=== PATIENT | male | born 1970 | race Caucasian/White ===

== ENCOUNTER 2017-02-20 19:06 | Emergency (ER) | payer OTHER ==
[~2017-02-20] VITALS: Ht 198.1 cm; Wt 95.2 kg
--- NOTE | ~2017-02-20 | EKG ---
PATIENT: OSVALDO HERNÁNDEZ UNIT #: [id number] Ventricular Rate: 72 BPM Atrial Rate: 72 BPM P-R Interval: 146 ms QRS Duration: 102 ms Q-T Interval: 386 ms QTC Calculation(Bezet): 422 ms P [place]: 21 degrees Calculated R [place]: -33 degrees Calculated T [place]: -36 degrees Diagnosis Line: Normal sinus rhythm Diagnosis Line: Left axis deviation Diagnosis Line: Nonspecific T wave abnormality Diagnosis Line: Abnormal ECG Diagnosis Line: When compared with ECG of 05-MAY-2016 10:42, Diagnosis Line: Nonspecific T wave abnormality no longer evident Diagnosis Line: in Anterior leads Diagnosis Line: Confirmed by DEMARCUS DE LA CRUZ MD ([id number]) on 02/22/2017 Diagnosis Line: 2:56:35 PM INTERPRETING MD: JONO GAITAN
--- NOTE | ~2017-02-20 | CR72 ---
[facility] A Service of [facility] & [facility] RADIOLOGY TEXT RESULTS PATIENT: OSVALDO HERNÁNDEZ LOCATION: [facility] : 72 UNIT #: [id number] AGE: [address]: Kaz Dumont MD SEX: M ORDER DR: [id number] [facility] [address] [place], [place] [address] [id number] MR#: [id number] Acc #: [id number] NAME: OSVALDO HERNÁNDEZ : 1970 SEX: M STUDY DATE/TIME: 02/20/2017 21:07 UNIT: [facility] ROOM: STUDY DESCRIPTION: CR Chest Single View Portable Attending Physician: Kaz Dumont M.D. Ordering Physician: [facility] Primary Care Physician: Tobin Mosqueda M.D. MEDICAL IMAGING REPORT This report is preliminary unless electronic signature is present EXAM Single view chest INDICATIONS Chest pain. Right-sided chest pain for 1 day. Positive smoking history. TECHNIQUE Single portable AP view of the chest compared to 05/05/2016. FINDINGS Heart and mediastinal contours are normal. Lungs are clear. No pleural effusion. IMPRESSION No acute cardiopulmonary findings. Dictated by... Elias Fu M.D. THIS IS AN ELECTRONICALLY VERIFIED REPORT Elias Fu M.D. at 02/21/2017 8:01 PM EZIO/mariaa TD: 02/21/2017 16:46 JOB #: [id number] MEDICAL IMAGING REPORT Page 1 of 1 COPY
[~2017-02-20 19:06] MED LIST: ALBUTEROL17 GM INH; ALTOPREV40 MG PO; BACITRACIN30 GM TOP; COUMADIN PO; COUMADIN7.5 MG PO; DAKIN'S MODIF1000 ML; DICLOFENAC PO; ELIQUIS5 MG PO; FLEXERIL10 MG PO; HYDROCODON-ACE1 EAC7 PO; KEFLEX PO; MEVACOR10 MG PO; MEVACOR40 MG PO; NORCO 5/325 TAB1 TAB PO; PREDNISONE PO; ROBAXIN500 MG PO; ULTRAM PO; VIBRAMYCIN100 M1 DOB; ZITHROMAX PO
[2017-02-20 20:05] LABS: BASOPHIL# 0.2 X10e3 (0-0.3); BASOPHIL% 2.7 % (0-2.5); EOSINOPHIL# 0.1 X10e3 (0-0.7); EOSINOPHIL% 1.5 % (0.0-7.0); HEMATOCRIT 43.8 % (38.0-50.0); HEMOGLOBIN 15.2 gm/dL (13.0-16.0); LYMPHOCYTE# 1.9 X10e3 (1.0-3.5); LYMPHOCYTE% 26.6 % (17.0-45.0); MEAN CELL VOLUME 103.3 FL (83-96); MEAN CORPUSCULAR HEMOGLOBIN 35.9 PG (28-34); MEAN CORPUSCULAR HGB CONC 34.8 g/dL (30-36); MEAN PLATELET VOLUME 7.6 FL (6.5-11.5); MONOCYTE# 0.5 X10e3 (0-1.0); MONOCYTE% 6.7 % (3.0-12.0); NEUTROPHIL# 4.4 X10e3 (1.5-7.1); NEUTROPHIL% 62.5 % (40-75); PLATELET COUNT 223 X10e3 (140-420); RED BLOOD COUNT 4.24 X10e (3.90-5.60); WHITE BLOOD COUNT 7.1 X10e3 (4.0-10.5)
[2017-02-20 20:06] LABS: DIFF IND NO
[2017-02-20 20:20] LABS: PARTIAL THROMBOPLASTIN TIME 30.9 SECONDS (23.5-31.3); PROTHROMBIN TIME (PATIENT) 11.2 SECONDS (10.0-11.7)
[2017-02-20 20:34] LABS: ALBUMIN SERUM 4.2 g/dL (3.5-5.0); BILIRUBIN, DIRECT 0.1 mg/dL (0.0-0.2); BILIRUBIN,INDIRECT 0.8 mg/dL (0.0-0.9); BILIRUBIN,TOTAL 0.9 mg/dL (0.2-2.0); BUN/CREATININE RATIO 7.77; CALCIUM SERUM 9.1 mg/dL (8.4-10.2); CREATININE SERUM 0.9 mg/dL (0.6-1.4); GLOM FILT RATE Estimated 102.8 mL/min (>60); POTASSIUM 4.5 mmol/L (3.5-5.1); PROTEIN TOTAL SERUM 7.1 g/dL (6.0-8.3)
[2017-02-20 22:09] LABS: POC - CKMB 1.1 ng/mL (0.0-7.9); POC - TROPONIN <0.05 ng/mL (<=0.05)
[2017-02-20 23:04] LABS: POC - CKMB 1.2 ng/mL (0.0-7.9); POC - TROPONIN <0.05 ng/mL (<=0.05)
== END 2017-02-20 23:59 | disposition home or self-care (01) ==
LOC: CED 19:06
PROVIDERS: Emergency Medicine
DX: R07.89 Other chest pain (principal); F17.200 Nicotine dependence, unspecified, uncomplicated; Z86.73 Personal history of transient ischemic attack (TIA), and cerebral infarction without residual deficits
CPT/HCPCS: 36415; 71010; 80048; 80076; 82553; 84484; 85025; 85610; 85730; 93005; 99285